=== PATIENT | female | born 1990 | race Caucasian/White ===

== ENCOUNTER → 2020-09-30 | Outpatient (REF) | payer OTHER | LOC: M WUC 09:34 | PROVIDERS: ATTEND Nurse Practitioner Family | DX: R30.0 Dysuria (principal) ==

== ENCOUNTER → 2020-12-09 | Outpatient (CLI) | payer SELFPAY | LOC: M LABSMTC 11:07 | PROVIDERS: ATTEND Pediatrics | DX: Z20.822 Contact with and (suspected) exposure to COVID-19 (principal) ==

== ENCOUNTER → 2021-01-02 | Outpatient (CLI) | payer OTHER ==
--- NOTE | 2021-01-02 12:11 | REP ---
INDICATION: PELVIC AND PERINEAL PAIN, IRREGULAR MENSES. COMPARISON: None. TECHNIQUE: Transabdominal and transvaginal scanning were performed. FINDINGS: Uterine dimensions are normal at 8.2 x 3.8 x 4.3 cm. Endometrial echo is 0.3 cm thick and centrally placed. No free fluid is seen in the cul-de-sac. Visualized bladder kothari are smooth. Visualized urinary bladder kothari are smooth. The right ovary has dimensions of 3.0 x 1.4 x 2.4 cm. It's Doppler flow is normal with a resistive index of 0.63. The left ovary dimensions are normal as well at 3.2 x 2.2 x 3.5 cm. It's Doppler flow was normal with resistive index of 0.63. IMPRESSION: Normal pelvic sonography. <Electronically signed by Torsten Norton > 01/02/21 [id number]
== END ==
LOC: M RAD 11:18
PROVIDERS: ATTEND Physician Assistant
DX: R10.2 Pelvic and perineal pain (principal); N92.6 Irregular menstruation, unspecified